=== PATIENT | female | born 1990 | race Caucasian/White ===

== ENCOUNTER 2019-06-28 05:47 | Day surgery (SDC) | payer BC, MEDICAID, OTHER ==
[2019-06-28] VITALS (14 sets, daily range): BP systolic 112–133; BP diastolic 59–85; PULSE 62–103; RESP 16–34
[2019-06-28] MEDS ORDERED: BUPIVACAINE 0.5%/EPI (SDV) 30 ML INJ ONE (06:44)
[2019-06-28] MEDS ORDERED: LACTATED RINGER'S 1,000 ML IV SCH (07:00)
[2019-06-28] MEDS ORDERED: BUPIVACAINE 0.5%/EPI (SDV) 30 ML INJ INJ ONE (07:05)
--- NOTE | 2019-06-28 07:23 | PREAC ---
Date/Time of Note Date/Time of Note DATE: 06/28/19 TIME: 07:22 Anesthesia Eval and Record Evaluation Time Pre-Procedure Interview DATE: 06/28/19 TIME: 07:22 Age 28 Sex female NPO: 8 hrs Preoperative diagnosis desires BTL Planned procedure Lap BTL Past Medical History Past Medical History: Includes GI: Obesity Surgery & Anesthesia Issues No known issue Meds Anticoagulation: No Beta Jeanne within 24 hr: No Reason Beta Jeanne not given: Pt. not on B-Jeanne Discontinued Reported Medications Iron,Carbonyl (IRON) 45 Mg Tablet, 45 MG PO DAILY 09/16/13 Vit-Iron Fumarate-FA ( Tablet) 1 Each Tablet, 1 EACH PO DAILY 09/16/13 Current Medications Lactated Ringer's 1,000 ml @ 125 mls/hr Q8H IV Last administered on 06/28/19at 06:59; Admin Dose 125 MLS/HR; Start 06/28/19 at 07:00 Meds reviewed: Yes Allergies Coded Allergies: No Known Drug Allergies (Verified Allergy, Unknown, 06/27/19) Allergies Reviewed: Yes Labs/Studies Labs Reviewed: Reviewed by anesthesiologist test: Negative Pre-procedure Exam Last vitals Vital Signs Date Temp Pulse Resp B/P (MAP) Pulse Ox O2 O2 Flow FiO2 Time Delivery Rate 06/28/19 98.0 65 18 114/59 100 Room Air 06:54 (77) Airway: Adequate mouth opening, Adequate thyromental dist Mallampati: Mallampati II Teeth: Normal Lung: Normal Heart: Normal ASA Physical Status ASA physical status: 2 Emergency: None Planned Anesthetic General/MAC: ETT Nerve block: TAP (bilateral) Pre-operative Attestations Prior to commencing anesthesia and surgery, the patient was re-evaluated, there was verification of: *The patient's identity *The results of appropriate recent lab work and preoperative vital signs *The above evaluation not changing prior to induction *Anesthetic plan, risk benefits, alternative and complications discussed with patient/family; questions answered; patient/family understands, accepts and wishes to proceed. AURELIANO MARTEL Jun 28, 2019 07:23
[2019-06-28] MEDS ORDERED: HYDROmorphONE 1 MG/5 ML IV SYRINGE IV PRN ×3 (07:30)
[2019-06-28] MEDS ORDERED: MEPERIDINE 25 MG INJ IV PRN (07:30)
[2019-06-28] MEDS ORDERED: ALBUTEROL 0.083% (NEB) 2.5 MG/3 ML AMP HHN PRN (07:30)
[2019-06-28] MEDS ORDERED: DESFLURANE 15 MIN ONE (07:30)
[2019-06-28] MEDS ORDERED: FENTAnyl 50 MCG/ML VIAL IV PRN ×2 (07:30)
[2019-06-28] MEDS ORDERED: DIPHENHYDRAMINE 50 MG INJ IV PRN (07:30)
[2019-06-28] MEDS ORDERED: METOCLOPRAMIDE 10 MG INJ IV PRN (07:30)
[2019-06-28] MEDS ORDERED: ROPIVACAINE 0.5 % 30 ML VIAL ONE (07:31)
[2019-06-28] MEDS ORDERED: FENTAnyl 50 MCG/ML VIAL ONE (07:31)
[2019-06-28] MEDS ORDERED: SUCCINYLCHOLINE CHLORIDE 100 MG/5 ML SYG IV ONE (07:59)
[2019-06-28] MEDS ORDERED: LIDOCAINE 100 MG SYRINGE ONE (07:59)
[2019-06-28] MEDS ORDERED: SUGAMMADEX SODIUM 200 MG/2 ML VIAL IV ONE (07:59)
[2019-06-28] MEDS ORDERED: CEFAZOLIN 1 GM INJ ONE (07:59)
[2019-06-28] MEDS ORDERED: PROPOFOL 20 ML ONE (07:59)
[2019-06-28] MEDS ORDERED: ROCURONIUM 50 MG INJ ONE (07:59)
--- NOTE | 2019-06-28 08:45 | OPR ---
Date/Time of Note Date/Time of Note DATE: 06/28/19 TIME: 08:43 Operative Report Procedure Date: Jun 28, 2019 Preoperative Diagnosis Patient desires permanent sterilization Postoperative Diagnosis Patient desires permanent sterilization Operation/Procedure Performed Laparoscopic bilateral salpingectomies Surgeon Pillo Morris MD [employer] Engineer None Anesthesia Type: general Estimated Blood Loss: minimal Transfusion none Specimen Segments of bilateral tubes Grafts/Implants none Tubes/Drains None Complications none Pt Condition Post Procedure: stable Disposition: PACU Procedure Description FINDINGS: Normal tubes, ovaries bilaterally. Normal uterus. CONSENT: Please see my preop H and P consent in the office for the consent process. DESCRIPTION OF PROCEDURE: She was taken to operating room and general anesthesia was induced. She was prepped and draped in the usual sterile fashion in dorsal lithotomy position. Surgical time-out was done. Anterior lip of the cervix was grasped using a single-tooth tenaculum, and a HUMI was inserted in normal fashion. The tenaculum was removed. There was no bleeding from the cervix. The patient already had a Valerio catheter as well. Gloves were changed. A 5 mm incision was developed inside the umbilicus. A blunt trocar was inserted in the normal fashion. Intraperitoneal position was confirmed using the laparoscope. Pneumoperitoneum was obtained. The patient was placed in Trendelenburg position. A second trocar was inserted under direct visualization of the laparoscope at the pubic hairline in the midline. Right tube was coagulated and transected 7 cm medial to fimbriated portion of the tube. Right salpingectomy was performed by coagulating and transecting the mesosalpinx while at all times hugging the tube. The tube was removed and sent to pathology. the edges of the mesosalpinx was not bleeding, but for abundance of precaution, I cauterized the edges of the mesosalpinx again. There was no bleeding. Same procedure was done on the contralateral side. All instruments removed under direct visualization of the laparoscope after pneumoperitoneum was released. There was no bleeding. Skin closed using 4-0 Monocryl. Then 10 mL 0.25% Marcaine with epinephrine was injected at the incision sites. HUMI was removed. There was no bleeding from the vagina. Patient tolerated the procedure well. PILLO MORRIS MD Jun 28, 2019 08:45
[2019-06-28] MEDS: ONDANSETRON 4 MG INJ IV PRN ×2 (08:59→10:01)
--- NOTE | 2019-07-01 07:42 | PAC ---
Date/Time of Note Date/Time of Note DATE: 07/01/19 TIME: 07:42 Post-Anesthesia Notes Post-Anesthesia Note Last documented vital signs Vital Signs Date Temp Pulse Resp B/P (MAP) Pulse Ox O2 O2 Flow FiO2 Time Delivery Rate 06/28/19 97.6 73 18 112/67 100 Room Air 09:45 (82) 06/28/19 8.0 09:05 Activity: WNL Respiratory function: WNL Cardiovascular function: WNL Mental status: Baseline Pain reasonably controlled: Yes Hydration appropriate: Yes Nausea/Vomiting absent: Yes AURELIANO MARTEL Jul 01, 2019 07:42
== END 2019-06-28 10:30 | disposition home or self-care (01) ==
LOC: SDS 05:47
PROVIDERS: ATTEND Specialist
DX: Z30.2 Encounter for sterilization (principal)
CPT/HCPCS: 58661; 88302; J0690; J1170; J2001; J2175; J2405; J2795; J3010; J7120; Z7512; Z7610